=== PATIENT | male | born 2005 | race Hispanic/Latino ===

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

== ENCOUNTER 2024-03-17 19:25 | Emergency (ER) | payer OTHER ==
[~2024-03-17] VITALS: Ht 162.6 cm; Wt 131.0 kg
[~2024-03-17 19:25] MED LIST changes: +CLARITIN10 M2 PO; +EQL IBUPROFEN200 MG PO; +IMITREX100 M1 PO
[2024-03-17 20:07] VITALS: BP 140/82
[2024-03-17] MEDS ORDERED: SODIUM CHLORIDE 0.9% 1,000 ML IV ONE (20:25)
[2024-03-17] MEDS ORDERED: DICYCLOMINE HCL 20 MG/2 ML VIAL IM ONE (20:25)
[2024-03-17 21:08] LABS: BASO% 0.1 % (0-3); HEMATOCRIT 45.8 % (39.0-50.0); HEMOGLOBIN 14.7 g/dl (14.0-18.0); IMMATURE GRANULOCYTES 0.3 % (0.0-5.0); LYMPH% 9.9 % (15-41); MEAN CELL VOLUME 88.8 fL CALC (80.0-100.0); MEAN CORPUSCULAR HGB 28.5 pG CALC (26.0-32.0); MEAN CORPUSCULAR HGB CONC 32.1 g/dL CAL (32.0-36.0); MONO% 8.3 % (2-13); NEUT# 5.91 thou/uL (1.82-7.42); NEUT% 80.4 % (42-76); RED BLOOD COUNT 5.16 mill/uL (4.70-6.10); RED CELL DISTRI WIDTH 12.4 % (11.5-15.5)
[2024-03-17 21:20] LABS: ALBUMIN 4.7 g/dL (3.2-5.0); CREATININE 0.6 mg/dL (0.7-1.3); POTASSIUM 3.7 mmol/l (3.5-5.1); TOTAL PROTEIN 8.2 g/dL (6.3-8.2)
[2024-03-17 21:26] LABS: BILIRUBIN, TOTAL 0.6 mg/dL (0.2-1.3)
[2024-03-17 23:01] VITALS: BP 155/78
[2024-03-18] MEDS ORDERED: DICYCLOMINE HYD10 MG PO (00:04)
[2024-03-18 00:21] VITALS: BP 155/78
== END 2024-03-18 00:21 | disposition home or self-care (01) ==
LOC: ED 19:25
PROVIDERS: Emergency Medicine
DX: A08.11 Acute gastroenteropathy due to Norwalk agent (principal); I10 Essential (primary) hypertension; R73.03 Prediabetes; G47.30 Sleep apnea, unspecified; J45.909 Unspecified asthma, uncomplicated; Z20.822 Contact with and (suspected) exposure to COVID-19